=== PATIENT | male | born 1955 | race Caucasian/White ===

== ENCOUNTER 2016-10-14 11:30 | Emergency (ER) | payer BC, OTHER ==
[2016-10-14 12:07] VITALS: BP 133/70
--- NOTE | 2016-10-14 13:17 | UC ---
Back Pain HPI - HPI Summary HPI Summary: Left lower back pain for about a week. constant. exacerbated by getting out of a car and twisting. no abd pain or groin pain. no urinary symptoms. NO prior hx of aneurysm. - History of Current Complaint Chief Complaint: UCBackPain Stated Complaint: LEFT SIDE BACK PAIN Time Seen by Provider: 10/14/16 12:45 Hx Obtained From: Patient Onset/Duration: Gradual Onset Timing: Constant Severity Initially: Mild Severity Currently: Moderate Back Pain: Is Discrete @ - Left lower back. Aggravating: Movement, Lifting, Bending, Walking Alleviating: Position Associated Signs And Symptoms: Negative: Swelling, Redness, Bruising, Fever, Weakness, Numbness - He has chronic numbness from prior neck pathology and surgery. there is no new numbness or saddle anesthesia., Tingling, Abdominal Pain, Bladder Incontinence, Bowel Incontinence - Allergies/Home Medications Allergies/Adverse Reactions: Allergies Allergy/AdvReac Type Severity Reaction Status Date / Time No Known Allergies Allergy Verified 10/14/16 12:06 Home Medications: Home Medications Insulin GLARGINE(*) [Lantus(*)] 0 units SUBCUT Q24H 10/14/16 [History Confirmed 10/14/16] Insulin inj REGULAR(*) 0 units SUBCUT AC 10/14/16 [History Confirmed 10/14/16] Lisinopril TAB* [Prinivil TAB*] 10 mg PO BID 10/14/16 [History Confirmed ] Simvastatin [Zocor 5 MG-] 20 mg PO DAILY 10/14/16 [History Confirmed 10/14/16] metFORMIN* [Glucophage 1000 MG TAB *] 1,000 mg PO BID 10/14/16 [History Confirmed 10/14/16] PMH/Surg Hx/FS Hx/Imm Hx Endocrine History Of: Reports: Diabetes - Type 2 Cardiovascular History Of: Reports: Hypertension - Surgical History Surgical History: Yes Surgery Procedure, Year, and Place: 1991 C2-C3 surgery - Family History Known Family History: Negative: Diabetes - Social History Alcohol Use: Occasionally Substance Use Type: None Smoking Status (MU): Former Smoker When Did the Patient Quit Smoking/Using Tobacco: 1997 Review of Systems All Other Systems Reviewed And Are Negative: Yes Physical Exam Triage Information Reviewed: Yes Appearance: Well-Appearing, Obese Vital Signs: Initial Vital Signs Temp 97.4 F 10/14/16 11:56 Pulse 76 10/14/16 11:56 Resp 14 10/14/16 11:56 BP 133/70 10/14/16 11:56 Pulse Ox 97 10/14/16 11:56 Vital Signs Reviewed: Yes Eye Exam: Normal Eyes: Positive: Conjunctiva Clear. Negative: Conjunctiva Inflamed ENT Exam: Normal ENT: Positive: Normal ENT inspection Neck exam: Normal Neck: Positive: Supple, Nontender, No Lymphadenopathy. Negative: Nuchal Rigidity Respiratory: Positive: Chest non-tender, Lungs clear, Normal breath sounds, No respiratory distress, No accessory muscle use. Negative: Respiratory distress Cardiovascular Exam: Normal Cardiovascular: Positive: RRR, No Murmur, Pulses Normal - NO pulsatile groin mass. Abdomen Description: Positive: Nontender, No Organomegaly, Soft Musculoskeletal: Positive: Strength Intact, ROM Intact, No Edema Neurological Exam: Normal Neurological: Positive: Alert - Straight leg raise neg. there is tenderness of the Left lower back. He has some pain with getting out of the chair but strength intact., Muscle Tone Normal. Negative: Fatigued, Lethargic, Unresponsive Psychological Exam: Normal Psychological: Positive: Normal Response To Family Skin Exam: Normal Skin: Negative: rashes Back Pain Course/Dx - Differential Dx/Diagnosis Differential Diagnosis/HQI/PQRI: Aneurysm, Arthritis, Cauda Equina Syndrome, Compressive Cord Syndrome, Epidural Abscess, Fracture, Herniated Disc, Neoplasm , Osteomyelitis, Osteoporosis, Septic Arthritis, Strain, Sprain Provider Diagnoses: Low back pain. Low back strain. Discharge - Discharge Plan Condition: Good Disposition: HOME Prescriptions: Cyclobenzaprine TAB* [Flexeril 10 MG TAB*] 10 mg PO BID PRN #10 tab MDD 2 PRN Reason: Pain Patient Education Materials: Acute Low Back Pain (ED) Referrals: Eliseo Friedman MD [Primary Care Provider] - 1 Week
== END 2016-10-14 13:19 | disposition home or self-care (01) ==
LOC: UCCORT 11:30
DX: S39.012A Strain of muscle, fascia and tendon of lower back, initial encounter (principal); X58.XXXA Exposure to other specified factors, initial encounter; Y93.9 Activity, unspecified; Y92.9 Unspecified place or not applicable; E11.9 Type 2 diabetes mellitus without complications; Z79.4 Long term (current) use of insulin; Z79.84 Long term (current) use of oral hypoglycemic drugs; I10 Essential (primary) hypertension; E66.9 Obesity, unspecified; Z87.891 Personal history of nicotine dependence
CPT/HCPCS: 81003; 99212; G0463

== ENCOUNTER 2018-07-27 17:26 | Emergency (ER) | payer BC ==
[2018-07-27 17:41] VITALS: BP 151/79
--- NOTE | 2018-07-27 18:37 | UC ---
Laceration HPI - HPI Summary HPI Summary: Pt c/o laceration to scalp. Pt said he was in his basement, miss stepped and hit back of head on metal furnace. No LOC, NO nausea, vomiting, no worsening ANGUIANO , Pt hit head last. As he fell he hit legs, then arms then head. - History Of Current Complaint Chief Complaint: UCLaceration Stated Complaint: S/P FALL HEAD LACERATION Time Seen by Provider: 07/27/18 18:10 Hx Obtained From: Patient Laceration Location: Head Mechanism Of Injury: Blunt Trauma Onset/Duration: Sudden Onset Severity: Mild Pain Intensity: 4 Aggravating Factors: Position, Movement Related History: Headache - Allergies/Home Medications Allergies/Adverse Reactions: Allergies Allergy/AdvReac Type Severity Reaction Status Date / Time No Known Allergies Allergy Verified 07/27/18 17:41 Home Medications: Home Medications Aspirin [Aspirin EC] 81 mg PO DAILY 07/27/18 [History Confirmed 07/27/18] Empagliflozin [Jardiance] 10 mg PO DAILY 07/27/18 [History Confirmed 07/27/18] Liraglutide (NF) [Victoza (NF)] 1.8 mg SUBCUT DAILY 07/27/18 [History Confirmed 07/27/18] Primidone TAB(*) [Mysoline TAB(*)] 25 mg PO BEDTIME 07/27/18 [History Confirmed 07/27/18] PMH/Surg Hx/FS Hx/Imm Hx Previously Healthy: Yes - Surgical History Surgical History: Yes Surgery Procedure, Year, and Place: 1997-- C2-C3 surgery. right leg fx - Family History Known Family History: Negative: Diabetes - Social History Occupation: Employed Full-time Lives: With Family Alcohol Use: Occasionally Substance Use Type: None Smoking Status (MU): Former Smoker Have You Smoked in the Last Year: No When Did the Patient Quit Smoking/Using Tobacco: 1997 - Immunization History Most Recent Tetanus Shot: unknown Review of Systems All Other Systems Reviewed And Are Negative: Yes Constitutional: Positive: Negative Skin: Positive: Other - laceration Eyes: Positive: Negative ENT: Positive: Negative Respiratory: Positive: Negative Cardiovascular: Positive: Negative Gastrointestinal: Positive: Negative Genitourinary: Positive: Negative Motor: Positive: Weakness - 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 , residual eakness right arm handfigner/contractures Neurovascular: Positive: Negative Musculoskeletal: Positive: Myalgia - left side neck Neurological: Positive: Headache Psychological: Positive: Negative Is Patient Immunocompromised?: No Physical Exam Triage Information Reviewed: Yes Appearance: Well-Appearing Vital Signs: Initial Vital Signs Temp 97.2 F 07/27/18 17:33 Pulse 78 07/27/18 17:33 Resp 18 07/27/18 17:33 BP 151/79 07/27/18 17:33 Pulse Ox 97 07/27/18 17:33 Vital Signs Reviewed: Yes Eye Exam: Normal ENT Exam: Normal Dental Exam: Normal Neck: Positive: Supple - at baseline, no mdline tenderness Respiratory Exam: Normal Musculoskeletal Exam: Normal - at baseline Neurological Exam: Normal - at baseline Psychological Exam: Normal Skin Exam: Other - laceration to posterior right side scalp Laceration Repair - Laceration Repair 1 Description: Linear Laceration Size After Repair: Length (cm) - 2.5, Width (mm) - 3, Depth (mm) - 2 Modified For Repair: No Cleansing Completed Via Routine Prep: Yes Irrigation With Pressure Irrigation Device: Yes Closure Material: Titi - 3 titi Closure Method: Single Layer Suture Of: Skin Laceration Course/Dx - Diagnosis Provider Diagnosis: Scalp laceration Discharge - Sign-Out/Discharge Documenting (check all that apply): Patient Departure All imaging exams completed and their final reports reviewed: No Studies - Discharge Plan Condition: Stable Disposition: HOME Patient Education Materials: Laceration (ED), Staple Care (ED) Referrals: Eliseo Friedman MD [Primary Care Provider] - Additional Instructions: Please return to clinic or your PCP in 7-10 days for staple removal. - Billing Disposition and Condition Condition: STABLE Disposition: Home - Attestation Statements Provider Attestation: I was available for consult. This patient was seen by the EDUARD. The patient was not presented to, seen by, or examined by me. EK
[2018-07-27] MEDS ORDERED: Tetan/Diph/Pertus SYR(Tdap)* 0.5 ML SYR(BOOSTRIX) use SYR IM ONE (18:38)
== END 2018-07-27 18:50 | disposition home or self-care (01) ==
LOC: UCCORT 17:26
DX: S01.01XA Laceration without foreign body of scalp, initial encounter (principal); W18.09XA Striking against other object with subsequent fall, initial encounter; Y93.01 Activity, walking, marching and hiking; Y92.008 Other place in unspecified non-institutional (private) residence as the place of occurrence of the external cause; Z23 Encounter for immunization; Z87.891 Personal history of nicotine dependence
CPT/HCPCS: 12001; 90715; 99211; G0463

== ENCOUNTER 2018-08-07 10:38 | Emergency (ER) | payer BC ==
[2018-08-07 10:54] VITALS: BP 124/58
--- NOTE | 2018-08-07 11:15 | UC ---
HPI Wound/Suture Re-check - HPI Summary HPI Summary: here for staple removal from the right side of scalp titi were placed here 11 days ago has no complaints , wound is healing well - History Of Current Complaint Chief Complaint: UCSkin Stated Complaint: STAPLE REMOVAL DONE HERE Time Seen by Provider: 08/07/18 11:03 Hx Obtained From: Patient Onset/Duration: Sudden Onset, Lasting Days - 18, Still Present Severity: Moderate Pain Intensity: 0 Procedure Type: staple removal Surgery Date: 07/27/18 - Allergies/Home Medications Allergies/Adverse Reactions: Allergies Allergy/AdvReac Type Severity Reaction Status Date / Time No Known Allergies Allergy Verified 08/07/18 10:49 Home Medications: Home Medications Multivitamin [Multivitamins] 1 cap PO DAILY 08/07/18 [History Confirmed 08/07/18 ] PMH/Surg Hx/FS Hx/Imm Hx Endocrine History: Diabetes Cardiovascular History: Hypertension - Surgical History Surgical History: Yes Surgery Procedure, Year, and Place: 1997-- C2-C3 surgery. right leg fx - Family History Known Family History: Negative: Diabetes - Social History Alcohol Use: Occasionally Substance Use Type: None Smoking Status (MU): Former Smoker Have You Smoked in the Last Year: No When Did the Patient Quit Smoking/Using Tobacco: 1997 - Immunization History Most Recent Tetanus Shot: unknown Review of Systems All Other Systems Reviewed And Are Negative: Yes Constitutional: Positive: Negative Skin: Positive: Negative Eyes: Positive: Negative ENT: Positive: Negative Is Patient Immunocompromised?: No Physical Exam Triage Information Reviewed: Yes Appearance: Well-Appearing, No Pain Distress, Well-Nourished Vital Signs: Initial Vital Signs Temp 98 F 08/07/18 10:51 Pulse 80 08/07/18 10:51 Resp 17 08/07/18 10:51 BP 124/58 08/07/18 10:51 Pulse Ox 98 08/07/18 10:51 Vital Signs Reviewed: Yes Eye Exam: Normal Eyes: Positive: Conjunctiva Clear ENT: Positive: Normal ENT inspection, Hearing grossly normal, Pharynx normal Neck: Positive: Supple, Nontender, No Lymphadenopathy Respiratory: Positive: Chest non-tender, Lungs clear, Normal breath sounds Cardiovascular: Positive: RRR, No Murmur, Pulses Normal Skin: Positive: Other - laceration right side of scalp , s/p repair with titi , healing well, no erythema, no discharge 3 titi were removed Course/Dx - Diagnosis Provider Diagnosis: Removal of titi, Laceration of scalp Discharge - Sign-Out/Discharge Documenting (check all that apply): Patient Departure All imaging exams completed and their final reports reviewed: No Studies - Discharge Plan Condition: Stable Disposition: HOME Patient Education Materials: Stitches Removal (ED) Referrals: Eliseo Friedman MD [Primary Care Provider] - If Needed - Billing Disposition and Condition Condition: STABLE Disposition: Home
== END 2018-08-07 11:11 | disposition home or self-care (01) ==
LOC: UCCORT 10:38
DX: S01.01XD Laceration without foreign body of scalp, subsequent encounter (principal); I10 Essential (primary) hypertension; E11.9 Type 2 diabetes mellitus without complications; Z87.892 Personal history of anaphylaxis; X58.XXXD Exposure to other specified factors, subsequent encounter

== ENCOUNTER 2019-04-04 17:26 | Emergency (ER) | payer BC ==
[2019-04-04 19:56] VITALS: BP 132/61
--- NOTE | 2019-04-04 20:23 | UC ---
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 Nail matrix intact and firm. He does not have pain. - History of Current Complaint Chief Complaint: UCUpperExtremity Time Seen by Provider: 04/04/19 20:13 Stated Complaint: FINGER NAIL CONCERN Hx Obtained From: Patient Onset/Duration: Sudden Onset, Lasting Hours Timing: Constant Pain Intensity: 0 Location: Discrete - right first digit. 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 right leg fx - Family History Known Family History: Positive: Non-Contributory Negative: Diabetes - Social History Occupation: Disabled Lives: With Family Alcohol Use: Occasionally Substance Use Type: None Smoking Status (MU): Former Smoker Have You Smoked in the Last Year: No When Did the Patient Quit Smoking/Using Tobacco: 1997 - Immunization History Most Recent Tetanus Shot: unknown Review of Systems All Other Systems Reviewed And Are Negative: Yes Constitutional: Positive: Negative Skin: Positive: Negative Eyes: Positive: Negative Neurological: Positive: Weakness - right hand and leg., Numbness - right hand with decreased sensation. Physical Exam Triage Information Reviewed: Yes Appearance: Well-Appearing, No Pain Distress, Obese Vital Signs: Initial Vital Signs Temp 97.9 F 04/04/19 19:45 Pulse 78 04/04/19 19:45 Resp 24 04/04/19 19:45 BP 132/61 04/04/19 19:45 Pulse Ox 98 04/04/19 19:45 Eye Exam: Normal ENT Exam: Normal ENT: Positive: Normal ENT inspection Neck: Positive: Supple, Nontender, No Lymphadenopathy Respiratory: Positive: Lungs clear, Normal breath sounds Cardiovascular: Positive: RRR, No Murmur Musculoskeletal Exam: Normal Psychological Exam: Normal Skin Exam: Other - right nail is thickened. Distal half is raised from nail bed with debris and blood below. Proximal nail bed is firm. Course/Dx - Course Course Of Treatment: dressing to keep nail down. Monitor. - Differential Diagnoses - Skin Complaint Differential Diagnoses: Other - nail avulsion - Diagnoses Provider Diagnosis: Nail avulsion, finger Discharge ED - Sign-Out/Discharge Documenting (check all that apply): Patient Departure All imaging exams completed and their final reports reviewed: No Studies - Discharge Plan Condition: Stable Disposition: HOME Patient Education Materials: Nail Avulsion (ED) Referrals: Eliseo Friedman MD [Primary Care Provider] - Additional Instructions: The partial nail avulsion will result in new nail growth gradually raising and sloughing the old nail. I advise keeping the loose nail tacked down with adhesive. - Billing Disposition and Condition Condition: STABLE Disposition: Home
== END 2019-04-04 20:44 | disposition home or self-care (01) ==
LOC: UCCORT 17:26
DX: S61.309A Unspecified open wound of unspecified finger with damage to nail, initial encounter (principal); X58.XXXA Exposure to other specified factors, initial encounter; Y93.G1 Activity, food preparation and clean up; Y92.9 Unspecified place or not applicable; G83.89 Other specified paralytic syndromes; E11.9 Type 2 diabetes mellitus without complications; I10 Essential (primary) hypertension; Z87.891 Personal history of nicotine dependence
CPT/HCPCS: 99212; G0463